=== PATIENT | male | born 1955 | race Caucasian/White ===

== ENCOUNTER 2017-07-18 07:32 | Emergency (ER) | payer BC ==
[~2017-07-18] VITALS: Ht 177.8 cm; Wt 122.7 kg
[~2017-07-18 07:32] MED LIST: CIPRO 500MG TA500 MG PO; DEPO-TESTOS200 MG/M1 IJ; FLOMAX 0.40.4 MG/CAP PO; LIPITOR 40MG TA40 MG PO; LOVENOX 100100 MG/ML SQ; NORCO 325 MG-51 TAB PO; PROSCAR 5MG5 MG PO; PYRIDIUM 100MG100 MG PO; SENOKOT8.6 MG PO; XARELTO15 MG PO
[2017-07-18 07:38] VITALS: BP 129/91; TEMP 97.9
[2017-07-18] MEDS ORDERED: PREDNISONE20 MG PO (08:05)
[2017-07-18] MEDS ORDERED: DITROPAN 5MG TAB5 MG PO (08:07)
[2017-07-18] MEDS ORDERED: ASPIRIN 81M81 MG/TA2 PO (08:08)
[2017-07-18 08:14] VITALS: PULSE 88
== END 2017-07-18 08:15 | disposition home or self-care (01) ==
LOC: COL.ER 07:32
DX: R21 Rash and other nonspecific skin eruption (principal); T36.0X5A Adverse effect of penicillins, initial encounter; I10 Essential (primary) hypertension; Z79.82 Long term (current) use of aspirin
CPT/HCPCS: J7512

== ENCOUNTER → 2020-04-10 | Outpatient (CLI) | payer BC ==
[~2020-04-10] MED LIST changes: +ASPIRIN 81M81 MG/TA2 PO; +DITROPAN 5MG TAB5 MG PO; +PREDNISONE20 MG PO
== END ==
LOC: DIA.ED
DX: R73.09 Other abnormal glucose (principal); E78.5 Hyperlipidemia, unspecified; E66.8 Other obesity
CPT/HCPCS: G0108

== ENCOUNTER → 2020-05-08 | Outpatient (CLI) | payer BC | LOC: DIA.ED 05-02 08:20 | DX: R73.09 Other abnormal glucose (principal); E78.5 Hyperlipidemia, unspecified; E66.8 Other obesity | CPT/HCPCS: G0108 ==

== ENCOUNTER 2023-09-25 16:08 | Emergency (ER) | payer MEDICARE ==
[~2023-09-25] VITALS: Ht 177.8 cm; Wt 127.3 kg
[2023-09-25] MEDS ORDERED: fentaNYL 50 MCG/ML 2 ML VIAL IV ONE (16:30)
[2023-09-25] MEDS ORDERED: HYDROmorphone 0.5 MG/0.5 ML SYRINGE IV ONE ×5 (16:30→21:00)
[2023-09-25 16:32] LABS: HEMATOCRIT 51.1 % (42.0-52.0); HEMOGLOBIN 16.8 g/dl (13.5-18.0); MEAN CELL VOLUME 88 fl (80.0-100.0); MEAN CORPUSCULAR HEMOGLOBIN 29 pg (27-31); MEAN CORPUSCULAR HGB CONC 33 g/dl (33.0-37.0); MEAN PLATELET VOLUME 11.4 fl (7.4-10.4); PLATELET COUNT 200 K/mm3 (130-400); RED BLOOD COUNT 5.79 M/mm3 (4.20-5.60)
[2023-09-25 16:36] LABS: INR 1.3 (0.8-3.0); PROTHROMBIN TIME 13.7 SECONDS (9.7-12.8)
[2023-09-25 16:39] LABS: PARTIAL THROMBOPLASTIN TIME 26.7 SECONDS (26.0-37.0)
[2023-09-25 16:42] LABS: ALANINE AMINOTRANSFERASE 100 U/L (0-55); ALCOHOL(ethanol),MEDICAL < 10 mg/dL (0-10); ALKALINE PHOSPHATASE 50 U/L (40-150); ANION GAP 14 mmol/L (7-16); AST,SGOT 77 U/L (5-34); BILIRUBIN,TOTAL 1.2 mg/dL (0.2-1.2); BLOOD UREA NITROGEN 19 mg/dL (8-26); CALCIUM 9.2 mg/dL (8.4-10.2); CHLORIDE 110 mEq/L (98-107); CREATININE, serum 1.37 mg/dL (0.72-1.25); GLUCOSE 200 mg/dL (70-99); POTASSIUM 4.3 mEq/L (3.5-4.5); SODIUM 142 mEq/L (136-145); TOTAL PROTEIN 6.4 g/dl (6.2-8.1)
[2023-09-25 17:08] LABS: BAND 4 % (0-10); LYMPHOCYTE 8 % (20.0-51.0); NEUTROPHILS 84 % (42.0-75.2); PLATELET ESTIMATE NORMAL (NORMAL)
[2023-09-25] MEDS ORDERED: Iohexol 350 - 100 ML VIAL IV ONE (17:17)
[2023-09-25] MEDS ORDERED: NS 100 ML IV SCH (17:18)
[2023-09-25] MEDS ORDERED: NS 1,000 ML IV ONE (19:15)
[2023-09-25 20:11] VITALS: TEMP 98
[2023-09-25 21:15] VITALS: BP 161/85; PULSE 109
== END 2023-09-25 21:15 | disposition short-term general hospital (02) ==
LOC: COL.ER 16:08
PROVIDERS: Emergency Medicine
DX: S92.001A Unspecified fracture of right calcaneus, initial encounter for closed fracture (principal); S42.301A Unspecified fracture of shaft of humerus, right arm, initial encounter for closed fracture; S82.301B Unspecified fracture of lower end of right tibia, initial encounter for open fracture type I or II; S82.831B Other fracture of upper and lower end of right fibula, initial encounter for open fracture type I or II; S72.101A Unspecified trochanteric fracture of right femur, initial encounter for closed fracture; S37.019A Minor contusion of unspecified kidney, initial encounter; Z88.1 Allergy status to other antibiotic agents; Z88.2 Allergy status to sulfonamides; W17.89XA Other fall from one level to another, initial encounter
CPT/HCPCS: J0737; J1170; J3010; J7030; Q9967